=== PATIENT | female | born 1995 | race Caucasian/White ===

== ENCOUNTER → 2024-03-28 11:16 | Outpatient (REF) | payer BC, SELFPAY | LOC: PNTC 11:16 | PROVIDERS: ATTENDING PHYSICIAN Obstetrics & Gynecology | DX: M45.9 Ankylosing spondylitis of unspecified sites in spine (principal); O35.5XX0 Maternal care for (suspected) damage to fetus by drugs, not applicable or unspecified; O09.899 Supervision of other high risk pregnancies, unspecified trimester; Z36.9 Encounter for antenatal screening, unspecified; Z36.82 Encounter for antenatal screening for nuchal translucency | CPT/HCPCS: 76801; 76813 ==

== ENCOUNTER → 2024-06-02 06:50 | Outpatient (REF) | payer BC, SELFPAY | LOC: PNTC 06:50 | PROVIDERS: ATTENDING PHYSICIAN Obstetrics & Gynecology | DX: O99.350 Diseases of the nervous system complicating pregnancy, unspecified trimester (principal); O09.90 Supervision of high risk pregnancy, unspecified, unspecified trimester | CPT/HCPCS: 76811 ==

== ENCOUNTER → 2024-07-14 06:47 | Outpatient (REF) | payer BC, SELFPAY | LOC: PNTC 06:47 | PROVIDERS: ATTENDING PHYSICIAN Obstetrics & Gynecology | DX: O99.891 Other specified diseases and conditions complicating pregnancy (principal) | CPT/HCPCS: 76816 ==

== ENCOUNTER → 2024-08-11 06:50 | Outpatient (REF) | payer BC, SELFPAY | LOC: PNTC 06:50 | PROVIDERS: ATTENDING PHYSICIAN Obstetrics & Gynecology | DX: Z34.90 Encounter for supervision of normal pregnancy, unspecified, unspecified trimester (principal) | CPT/HCPCS: 76816 ==

== ENCOUNTER 2024-09-20 17:38 | Inpatient (IN) | payer BC, SELFPAY ==
[2024-09-20 16:58] LABS: Urine Albumin Negative (Neg - Trace); Urine Bilirubin Negative (Negative); Urine Character Clear (Clear); Urine Color Yellow; Urine Glucose Negative (Negative); Urine Ketone Negative (Negative); Urine Leukocyte Negative (Negative); Urine Nitrite Negative (Negative); Urine Occult Blood Negative (Negative); Urine Urobilinogen Negative (Neg - 1+)
[2024-09-20 17:09] LABS: Hematocrit 32.5 % (37.0-47.0); Hemoglobin 11.3 g/dL (12.0-16.0); Mean Corp Hgb Conc. 34.8 g/dL (33.0-37.0); Mean Corpuscular Hgb 29.3 pg (27.0-31.0); Mean Corpuscular Volume 84.2 fL (81.0-99.0); Platelet Count 340 10^3/uL (130-400); Red Blood Cell Count 3.86 10^6/uL (4.20-5.40); Red Cell Dist. Width 13.1 % (11.5-14.5); White Blood Cell Count 12.7 10^3/uL (4.8-10.8)
[2024-09-20 17:14] LABS: ALT (SGPT) 12 U/L (0-35); AST (SGOT) 25 U/L (14-36); Albumin 3.4 g/dl (3.5-5.0); Alkaline Phosphatase 253 U/L (38-126); Blood Urea Nitrogen 9 mg/dl (7-17); Calcium 9.5 mg/dl (8.4-10.2); Carbon Dioxide 24 mmol/L (22-30); Chloride 106 mmol/L (98-107); Glucose 81 mg/dl (70-99); Potassium 4.6 mmol/L (3.5-5.1); Sodium 137 mmol/L (135-145); Total Bilirubin 0.5 mg/dl (0.2-1.3); Total Protein 6.8 g/dl (6.3-8.2); eGFR > 60.00
[2024-09-20 17:14] LABS: Protein/creatinine Ratio 0.6; Urine Protein 15 mg/dl
[2024-09-20 17:17] LABS: % Basophils 0.3 % (0-2); % Eosinophils 1.5 % (0-6); % Immature Granulocytes 0.4 % (0-0.5); % Lymphocytes 44.3 % (20.5-51.1); % Monocytes 5.2 % (1.7-9.3); % Neutrophils 48.3 % (42.2-75.2); Absolute Eosinophils 0.2 10^3/uL (0-0.7); Absolute Immature Granulocytes 0.1 10^3/uL (0-0.05); Absolute Lymphocytes 5.6 10^3/uL (1.2-3.4); Absolute Monocytes 0.7 10^3/uL (0.1-0.6); Absolute Neutrophils 6.1 10^3/uL (1.4-6.5); Nucleated Red Blood Cells % 0 %
[2024-09-20 17:18] VITALS: BP 142/91; BMI 25.7
[2024-09-20] MEDS: PITOCIN 30 UNITS/NSS 500 ML IV (20:31)
[2024-09-20] MEDS: LR 1000 IV ×2 (20:31→22:17)
[2024-09-20] MEDS: TRANDATE 20 MG IV (21:24)
[2024-09-20] MEDS: MAGNESIUM SULFATE 100 IV (21:50)
[2024-09-20] MEDS: MAGNESIUM SULFATE 40 GRAM 1000 IV (22:15)
[2024-09-21] MEDS: STADOL 1 MG IV (03:42)
[2024-09-21] MEDS: TRANDATE 20 MG IV (06:17)
[2024-09-21 06:24] LABS: % Basophils 0.2 % (0-2); % Eosinophils 0.1 % (0-6); % Immature Granulocytes 0.7 % (0-0.5); % Lymphocytes 18.5 % (20.5-51.1); % Monocytes 3.5 % (1.7-9.3); Absolute Immature Granulocytes 0.1 10^3/uL (0-0.05); Absolute Lymphocytes 3.1 10^3/uL (1.2-3.4); Absolute Monocytes 0.6 10^3/uL (0.1-0.6); Absolute Neutrophils 12.9 10^3/uL (1.4-6.5); Hematocrit 32.7 % (37.0-47.0); Hemoglobin 11.4 g/dL (12.0-16.0); Mean Corp Hgb Conc. 34.9 g/dL (33.0-37.0); Mean Corpuscular Hgb 29.4 pg (27.0-31.0); Mean Corpuscular Volume 84.3 fL (81.0-99.0); Mean Platelet Volume 9.8 fL (7.4-10.4); Nucleated Red Blood Cells % 0 %; Platelet Count 335 10^3/uL (130-400); Red Blood Cell Count 3.88 10^6/uL (4.20-5.40); Red Cell Dist. Width 13.1 % (11.5-14.5); White Blood Cell Count 16.8 10^3/uL (4.8-10.8)
[2024-09-21 06:54] LABS: ALT (SGPT) 12 U/L (0-35); AST (SGOT) 24 U/L (14-36); Albumin 3.4 g/dl (3.5-5.0); Alkaline Phosphatase 316 U/L (38-126); Blood Urea Nitrogen 7 mg/dl (7-17); Calcium 7.7 mg/dl (8.4-10.2); Carbon Dioxide 22 mmol/L (22-30); Chloride 105 mmol/L (98-107); Estimated Creatinine Clearance > 125 ml/min; Glucose 115 mg/dl (70-99); Magnesium 5.9 mg/dl (1.6-2.3); Potassium 4.4 mmol/L (3.5-5.1); Sodium 134 mmol/L (135-145); Total Bilirubin 0.4 mg/dl (0.2-1.3); Total Protein 6.6 g/dl (6.3-8.2); eGFR > 60.00
[2024-09-21] MEDS: XYLOCAINE-MPF 1% VIAL 30 ML INFIL (07:48)
[2024-09-21] MEDS: HEMABATE 250 MCG IM (07:50)
[2024-09-21] MEDS: PRENATAL PLUS PO (12:51)
[2024-09-21] MEDS: LR 1000 IV (12:51)
[2024-09-21] MEDS: MAGNESIUM SULFATE 40 GRAM 1000 IV (17:16)
[2024-09-21] MEDS: MOTRIN 600 MG PO (17:47)
[2024-09-22] MEDS: TYLENOL 650 MG PO (01:20)
[2024-09-22] MEDS: LR 1000 IV (01:56)
[2024-09-22 04:03] LABS: Hematocrit 27.1 % (37.0-47.0); Hemoglobin 9.4 g/dL (12.0-16.0)
[2024-09-22] MEDS: PROCARDIA XL (EXTENDED RELEASE) 30 MG PO (04:45)
[2024-09-22] MEDS: FEOSOL 325 MG PO (08:09)
[2024-09-22] MEDS: PRENATAL PLUS 1 TABLET PO (08:09)
[2024-09-22 11:59] LABS: Syphilis/T. pallidum Ab Reflex Negative (Negative)
[2024-09-23] MEDS: PROCARDIA XL (EXTENDED RELEASE) 30 MG PO (07:45)
[2024-09-23] MEDS: FEOSOL 325 MG PO (07:45)
== END 2024-09-23 11:59 | disposition home or self-care (01) | DRG 807 ==
LOC: LDRP 17:38
PROVIDERS: ADMITTING PHYSICIAN Obstetrics & Gynecology
PROC: 10E0XZZ Delivery of Products of Conception, External Approach (ICD-10-PCS; 2024-09-20)
PROC: 0U7C7DJ Dilation of Cervix with Intraluminal Device, Temporary, Via Natural or Artificial Opening (ICD-10-PCS; 2024-09-20)
PROC: 0UQMXZZ Repair Vulva, External Approach (ICD-10-PCS; 2024-09-20)
PROC: 4A0HXCZ Measurement of Products of Conception, Cardiac Rate, External Approach (ICD-10-PCS; 2024-09-20)
PROC: 0KQM0ZZ Repair Perineum Muscle, Open Approach (ICD-10-PCS; 2024-09-20)
DX: O14.14 Severe pre-eclampsia complicating childbirth (principal); Z37.0 Single live birth; Z3A.37 37 weeks gestation of pregnancy; K90.0 Celiac disease; O70.1 Second degree perineal laceration during delivery; M45.9 Ankylosing spondylitis of unspecified sites in spine; O72.1 Other immediate postpartum hemorrhage; R55 Syncope and collapse; O90.81 Anemia of the puerperium; D64.9 Anemia, unspecified; Z88.1 Allergy status to other antibiotic agents; Z88.2 Allergy status to sulfonamides
CPT/HCPCS: 88307; 36415; 76815; 80053; 81003; 82570; 83735; 84156; 85014; 85018; 85025; 86780; 86850; 86900; 86901